=== PATIENT | female | born 2000 | race Hispanic/Latino ===

== ENCOUNTER 2021-05-07 07:36 | Emergency (ER) | payer OTHER, SELFPAY ==
[2021-05-07 12:07] LABS: SARS-CoV-2 NAA Rapid Test Not Detected (NotDetected)
== END 2021-05-07 08:20 | disposition home or self-care (01) ==
LOC: BURERS 07:36
DX: J06.9 Acute upper respiratory infection, unspecified (principal); Z20.822 Contact with and (suspected) exposure to COVID-19
CPT/HCPCS: 0241U; 87081; 87430; 99283

== ENCOUNTER 2021-09-07 15:28 | Emergency (ER) | payer OTHER ==
[2021-09-07] MEDS ORDERED: cefTRIAXone\\ROCEPHIN 1 GM VIAL ONE (16:07)
[2021-09-07] MEDS ORDERED: Lidocaine 1% PF 5 ML VIAL ONE (16:07)
[2021-09-11 04:58] LABS: Chlam.trachomatis by PCR,Urine Not Detected (NotDetected)
== END 2021-09-07 16:14 | disposition home or self-care (01) ==
LOC: BURERS 15:28
DX: A64 Unspecified sexually transmitted disease (principal)
CPT/HCPCS: 87491; 87591; 96372; 99283; J0696

== ENCOUNTER 2023-09-24 12:02 | Emergency (ER) | payer OTHER, SELFPAY | END 2023-09-24 12:45 | disposition home or self-care (01) | LOC: BURERS 12:02 | DX: J11.1 Influenza due to unidentified influenza virus with other respiratory manifestations (principal) | CPT/HCPCS: 99283 ==

== ENCOUNTER 2025-06-06 19:43 | Emergency (ER) | payer SELFPAY | END 2025-06-06 20:10 | disposition home or self-care (01) | LOC: BURERS 19:43 | DX: H92.01 Otalgia, right ear (principal) | CPT/HCPCS: 99283 ==

== ENCOUNTER 2025-07-10 20:46 | Emergency (ER) | payer MEDICAID, SELFPAY ==
[2025-07-10 21:13] LABS: Pregnancy Test - Urine (BHCG) POSITIVE (Negative); Pregu Control Background? CLEAR/WHITE (CLR/WHITE); Pregu Control Bar Appear? YES (CONTROL BAR)
[2025-07-10 21:21] LABS: Glucose, Urine (Dipstick) Negative (Negative); Leukocyte Small (Negative); Protein, Urine (Dipstick) Negative (Neg-Trace); Specific Gravity, Urine 1.020 (1.005-1.030)
[2025-07-10 21:39] LABS: CAUTI Indications for Culture Pregnancy; RBC/HPF 0-3 HPF (0-3); WBC/HPF 0-3 HPF (0-3)
[2025-07-10 21:40] LABS: Bacteria/HPF 1+ HPF (None Seen)
[2025-07-10 21:41] LABS: Mucous/LPF Rare LPF (<2+)
[2025-07-10 21:48] LABS: Urine Culture Reflex Yes Yes
[2025-07-10 21:52] LABS: #Basophils 0.2 thou/uL (0.0-0.2); #Eosinophils 0.2 thou/uL (0.0-0.7); #Lymphocytes 3.1 thou/uL (1.20-3.40); #Monocytes 0.6 thou/uL (0.11-0.59); #Neutrophils 5.7 thou/uL (1.40-6.50); %Basophils 2.1 % (0.0-1.0); %Eosinophils 1.6 % (0.0-10.0); %Lymphocytes 31.5 % (21.0-51.0); %Monocytes 6.4 % (0.0-10.0); %Neutrophils 58.4 % (42.0-75.0); Hematocrit 38.7 % (36.0-47.0); Hemoglobin 13.6 g/dL (12.0-16.0); Mean Corpuscular Hemoglobin 26.6 pg (27.0-31.0); Mean Corpuscular Volume 75.5 fl (78.0-98.0); Platelet Count 206 10x3/uL (130-400); Red Blood Cell (RBC) Count 5.13 mill/uL (4.20-5.40); White Blood Cell (WBC) Count 9.8 10x3/uL (4.8-10.8)
[2025-07-10 21:55] LABS: ALT (SGPT) 17 U/L (Less than 34); AST (SGOT) 17 U/L (11-34); Albumin 4.3 g/dL (3.1-4.5); Alkaline Phosphatase 65 U/L (40-110); Anion Gap 15 mmol/L (10-20); BUN (Urea Nitrogen) 10 mg/dL (7.0-18.7); Bilirubin, Total 0.2 mg/dL (0.3-1.2); Calc. Creatinine Clearance 0 mL/min (70-130); Calcium 8.8 mg/dL (7.8-10.44); Carbon Dioxide 18 mmol/L (22-29); Chloride 110 mmol/L (98-107); Globulin 3.1 g/dL (2.4-3.5); Glucose 96 mg/dL (70-105); Potassium 3.7 mmol/L (3.5-5.1); Sodium 139 mmol/L (136-145)
== END 2025-07-10 22:31 | disposition short-term general hospital (02) ==
LOC: BURERS 20:46
DX: O20.0 Threatened abortion (principal); Z3A.08 8 weeks gestation of pregnancy
CPT/HCPCS: 36415; 80053; 81001; 81025; 84702; 85025; 86900; 86901; 87077; 87086; 99284